=== PATIENT | female | born 1930 | race Caucasian/White ===

== ENCOUNTER 2018-03-29 13:45 | Emergency (ER) | payer MEDICARE, OTHER ==
[2018-03-29] MEDS ORDERED: Sodium Chloride 0.9% 1000 ML 1,000 ML IV SCH (14:00)
--- NOTE | 2018-03-29 14:02 | ERPHSYRPT ---
- History of Present Illness Time Seen by Provider: 03/29/18 13:56 Source: patient Exam Limitations: no limitations Patient Subjective Stated Complaint: pt reports she woke up this morning feeling weak-denies pain but states that when she stands up she feels like her legs are going to give out from the waist-denies fall-denies injury Triage Nursing Assessment: pt arrived to ed [facility] warm and dry- able to answer all questions [id number] easy and nonlabored-able to move extremities with noticed favoring of right arm-pt reports that shoulder is currently broke Physician History: 88-year-old white female arrives with complaint of weakness since this morning. Patient states that she was getting ready to go to the doctor's office when she stood up and felt weak in the legs she felt like she was going to pass out. She states she did not have any problems moving her feet or hands she does not have any speech problems. Past medical history includes myocardial infarction, hypercholesterolemia, high pressure, diabetes type 2, hypothyroidism, osteoarthritis Past surgical history includes CABG, cardiac catheter, hysterectomy, parathyroid surgery secondary to cancer, right carotid endarterectomy Social history negative Timing/Duration: today Severity: moderate Modifying Factors: Improves With: other (patient felt weak in her legs) Associated Symptoms: No nausea, No vomiting, No abdominal pain, No shortness of breath, No heartburn, No diaphoresis, No chills, No chest pain, No fever, No headaches, No loss of appetite, No malaise, No rash, No syncope, No seizure, No weakness Allergies/Adverse Reactions: Sulfa (Sulfonamide Antibiotics) Allergy (Mild, Verified 03/29/18 13:55) Hives Home Medications: Allopurinol 100 mg [Zyloprim 100 mg] 300 mg PO BID 11/08/15 [History] Amlodipine Besylate 5 mg [Norvasc 5 mg] 2.5 mg PO DAILY 11/08/15 [History] Aspirin [Pb Chewable Aspirin] 1 tab PO DAILY 11/08/15 [History] Furosemide 40 mg [Lasix 40 MG] 40 mg PO BID 11/08/15 [History] Glipizide 5 mg [Glucotrol 5 MG] 5 mg PO BID 11/08/15 [History] Levothyroxine Sodium 75 Mcg [Synthroid 75 Mcg] 75 mg PO DAILY 11/08/15 [ History] Metformin HCl 500 mg [Glucophage 500 MG] 500 mg PO DAILY 11/08/15 [History ] Nebivolol HCl [Bystolic] 10 mg PO BID 11/08/15 [History] Potassium Chloride 10 Meq Tab* [Klor Con 10 MEQ] 10 meq PO BID 11/08/15 [ History] Simvastatin 20 mg PO HS 11/08/15 [History] Benazepril HCl 10 mg [Lotensin 10 MG] 10 mg PO DAILY 03/31/16 [History] Tramadol HCl 50 mg [Ultram 50 mg] 50 mg PO UD 03/31/16 [History] Hx Tetanus, Diphtheria Vaccination/Date Given: Yes Hx Influenza Vaccination/Date Given: Yes Hx Pneumococcal Vaccination/Date Given: Yes Immunizations Up to Date: Yes - Review of Systems Constitutional: Weakness, No Fever, No Chills Eyes: No Symptoms Ears, Nose, & Throat: No Symptoms Respiratory: No Cough, No Dyspnea Cardiac: No Chest Pain, No Edema, No Syncope Abdominal/Gastrointestinal: No Abdominal Pain, No Nausea, No Vomiting, No Diarrhea Genitourinary Symptoms: No Dysuria Musculoskeletal: No Back Pain, No Neck Pain Skin: No Rash Neurological: No Dizziness, No Focal Weakness, No Sensory Changes Psychological: No Symptoms Endocrine: No Symptoms All Other Systems: Reviewed and Negative - Past Medical History Pertinent Past Medical History: Yes Neurological History: No Pertinent History ENT History: No Pertinent History Cardiac History: Other Respiratory History: No Pertinent History Endocrine Medical History: Hyperthyroidism Musculoskeletal History: Arthritis GI Medical History: No Pertinent History History: No Pertinent History Psycho-Social History: No Pertinent History Female Reproductive Disorders: No Pertinent History Other Medical History: [address] BYPASS IN 2001 - Past Surgical History Past Surgical History: Yes Neuro Surgical History: No Pertinent History Cardiac: CABG, Cardiac Catheterization Respiratory: No Pertinent History Gastrointestinal: No Pertinent History Female Surgical History: Hysterectomy Other Surgical History: PARATHYROID SURGERY FROM CANCER - Social History Smoking Status: Never smoker Exposure to second hand smoke: No Drug Use: none Patient Lives Alone: No - Female History Hx Now: No - Nursing Vital Signs Nursing Vital Signs: Initial Vital Signs Temperature 98.7 F 03/29/18 13:49 Pulse Rate 39 L 03/29/18 13:49 Respiratory Rate 18 03/29/18 13:49 Blood Pressure 153/43 03/29/18 13:49 O2 Sat by Pulse Oximetry 99 03/29/18 13:49 Pain Scale Pain Intensity 0 - Physical Exam General Appearance: no apparent distress, alert Eye Exam: PERRL/EOMI (which leads to the templ), eyes nml inspection Ears, Nose, Throat Exam: normal ENT inspection, TMs normal, pharynx normal, moist mucous membranes Neck Exam: normal inspection, non-tender, supple, full range of motion Respiratory Exam: normal breath sounds, lungs clear, No respiratory distress Cardiovascular Exam: bradycardia, No murmur Gastrointestinal/Abdomen Exam: soft, normal bowel sounds, No tenderness, No mass Back Exam: normal inspection, normal range of motion, No CVA tenderness, No vertebral tenderness Extremity Exam: normal inspection, normal range of motion, pelvis stable Neurologic Exam: alert, oriented x 3, cooperative, a&p mechanic II-XII nml as tested, normal mood/affect, nml cerebellar function, nml station & gait, sensation nml, No motor deficits Skin Exam: normal color, warm, dry, No rash Lymphatic Exam: No adenopathy SpO2 Interpretation: normal (99%) SpO2: 99 Oxygen Delivery: Room Air - Course EKG Interpreted by Me: RATE (50 bpm), A-fib, Other (EKG: atrial fibrillation, bradycardia, 50 bpm, frequent pauses, no acute ST or T wave changes noted) - Radiology Exams Chest X-ray Interpretation: Discussed w/ radiologist (minimal lingular atelectasis/ scarring, large chunky right calcified paratracheal lymph node, heart normal limits) Ordered Tests: Active Orders 24 hr Category Date Time Status EKG-ER Only STAT Care 03/29/18 13:56 Active IV Insertion STAT Care 03/29/18 13:56 Active Orthostatic Vital Signs STAT Care 03/29/18 13:58 Active CHEST 1 VIEW (PORTABLE) Stat Exams 03/29/18 13:57 Completed CBC W DIFF Stat Lab 03/29/18 14:25 Completed CMP Stat Lab 03/29/18 14:25 Completed MAGNESIUM Stat Lab 03/29/18 14:25 Completed Potassium Stat Lab 03/29/18 15:40 Completed TROPONIN Q3H Lab 03/29/18 14:25 Completed TROPONIN Q3H Lab 03/29/18 17:00 Ordered TROPONIN Q3H Lab 03/29/18 20:00 Ordered TROPONIN Q3H Lab 03/29/18 23:00 Ordered TROPONIN Q3H Lab 03/30/18 02:00 Ordered TSH, 3RD Generation Routine Lab 03/29/18 14:25 Completed UA W/RFX UR CULTURE Stat Lab 03/29/18 13:56 Uncollected Medication Summary Generic Name Dose Route Start Last Admin Trade Name Freq PRN Reason Stop Dose Admin Sodium Chloride 1,000 mls @ 50 mls/hr 03/29/18 14:00 03/29/18 14:46 Sodium Chloride 0.9% 1000 Ml IV 04/28/18 13:59 50 mls/hr .Q20H PAO Administration Discontinued Medications Generic Name Dose Route Start Last Admin Trade Name Freq PRN Reason Stop Dose Admin Calcium Gluconate Confirm 03/29/18 16:06 Calcium Gluconate 10% 1000 Mg Administered 03/29/18 16:07 Dose 1,000 mg IV .[facility] ONE Lab/Rad Data: Laboratory Result Diagrams 03/29/18 14:25 03/29/18 15:40 Laboratory Results 03/29/18 03/29/18 03/29/18 Range/Units 15:40 14:25 14:25 WBC (4.0-10.5) K/mm3 RBC (4.1-5.4) M/mm3 Hgb (12.0-16.0) gm/dl Hct (35-47) % MCV (78-100) fl MCH (26-32) pg MCHC (32-36) g/dl RDW (11.5-14.0) % Plt Count (150-450) K/mm3 MPV (6-9.5) fl Gran % (36.0-66.0) % Eos # (Auto) (0-0.5) Absolute Lymphs (auto) (1.0-4.6) Absolute Monos (auto) (0.0-1.3) Lymphocytes % (24.0-44.0) % Monocytes % (0.0-12.0) % Eosinophils % (0.00-5.0) % Basophils % (0.0-0.4) % Absolute Granulocytes (1.4-6.9) Basophils # (0-0.4) Sodium 129 L (137-145) mmol/L Potassium 8.4 H* 8.3 H* (3.5-5.1) mmol/L Chloride 98 (98-107) mmol/L Carbon Dioxide 22 (22-30) mmol/L Anion Gap 17.4 H (5-15) MEQ/L BUN 92 H (7-17) mg/dL Creatinine 2.60 H (0.52-1.04) mg/dL Estimated GFR 18.4 ML/MIN Glucose 253 H (74-106) mg/dL Calcium 9.9 (8.4-10.2) mg/dL Magnesium 1.6 (1.6-2.3) mg/dL Total Bilirubin 0.30 (0.2-1.3) mg/dL AST 18 (14-36) U/L ALT 16 (0-35) U/L Alkaline Phosphatase 48 (38-126) U/L Troponin I < 0.012 (0.000-0.034) ng/mL Serum Total Protein 6.8 (6.3-8.2) g/dL Albumin 4.3 (3.5-5.0) g/dL TSH 3rd Generation 0.313 L (0.47-4.68) mIU/L 03/29/18 Range/Units 14:25 WBC 10.4 (4.0-10.5) K/mm3 RBC 3.82 L (4.1-5.4) M/mm3 Hgb 11.5 L (12.0-16.0) gm/dl Hct 34.9 L (35-47) % MCV 91.4 (78-100) fl MCH 30.1 (26-32) pg MCHC 33.0 (32-36) g/dl RDW 14.9 H (11.5-14.0) % Plt Count 193 (150-450) K/mm3 MPV 11.9 H (6-9.5) fl Gran % 86.2 H (36.0-66.0) % Eos # (Auto) 0.01 (0-0.5) Absolute Lymphs (auto) 1.12 (1.0-4.6) Absolute Monos (auto) 0.28 (0.0-1.3) Lymphocytes % 10.8 L (24.0-44.0) % Monocytes % 2.7 (0.0-12.0) % Eosinophils % 0.1 (0.00-5.0) % Basophils % 0.2 (0.0-0.4) % Absolute Granulocytes 8.95 H (1.4-6.9) Basophils # 0.02 (0-0.4) Sodium (137-145) mmol/L Potassium (3.5-5.1) mmol/L Chloride (98-107) mmol/L Carbon Dioxide (22-30) mmol/L Anion Gap (5-15) MEQ/L BUN (7-17) mg/dL Creatinine (0.52-1.04) mg/dL Estimated GFR ML/MIN Glucose (74-106) mg/dL Calcium (8.4-10.2) mg/dL Magnesium (1.6-2.3) mg/dL Total Bilirubin (0.2-1.3) mg/dL AST (14-36) U/L ALT (0-35) U/L Alkaline Phosphatase (38-126) U/L Troponin I (0.000-0.034) ng/mL Serum Total Protein (6.3-8.2) g/dL Albumin (3.5-5.0) g/dL TSH 3rd Generation (0.47-4.68) mIU/L - Progress Progress: improved Progress Note: 03/29/18 14:41 This is an 88-year-old white female with history of myocardial infarction atherosclerotic coronary artery disease hypercholesterolemia high blood pressure diabetes hypothyroidism osteoarthritis She states that she was getting ready to see her drill press operator for metal today when she began to feel weak in the legs when she stood up. She did not have any problems moving did not have any speech abnormalities or sensory abnormalities. She does state that she feels weak with standing. Patient arrives with a heart rate of approximately 40 blood pressure is stable EKG shows what appears to be a fairly narrow complex which shows a rate at approximately 50 bpm however there are positive lasting as long as 2-3 seconds Patient has a monitor that shows heart rate going from the 50s down into the 30s Patient does not appear to be in acute distress. I have contacted Dr. Peres, and I requested that the nurses fax the patient's EKG down to him CBC CMP troponin has been ordered. He has requested magnesium level and TSH level. . 03/29/18 16:18 Patient was noted have potassium level of 8.3 sodium 129 chloride 98 bicarbonate 22 BUN 92 creatinine 2.6 glucose 253 CBC was stable troponin within normal limits Case is discussed with Dr. [place] data communications technician for Dr. Suero he would prefer to have the patient sent to [facility] due to the renal problems with the patient combined with hyperkalemia as well as the patient's bradycardia. I've contacted Dr. Peres he asked that I give the patient one amp of bicarbonate and 1 amp of calcium gluconate IV slowly. IV normal saline was given wide open [address] Angel through [facility] call He requested that we give the patient D 25 one amp go ahead and give the patient Humulin R 10 units IV. He has excepted the patient for transfer. Diagnosis bradycardia. Weakness. Hyperkalemia. Renal failure. - Departure Time of Disposition: 16:21 Departure Disposition: Transfer ([facility]) Clinical Impression: Hyperkalemia, Bradycardia, Weakness Renal failure Qualifiers: Renal failure chronicity: unspecified chronicity Qualified Code(s): N19 - Unspecified kidney failure Condition: Fair Critical Care Time: No Referrals: DONALD SUERO [Primary Care Provider] -
--- NOTE | 2018-03-29 14:30 | XRAY ---
Indication: Weakness. Comparison: March 31, 2016. Portable chest unchanged again demonstrating minimal lingular atelectasis/scarring and large chunky right paratracheal calcified node. Remaining lungs clear. Heart is within normal limits for AP portable technique and demonstrates previous CABG surgery. Bony thorax again demonstrates osteopenia, mild degenerative changes, and nonunited right humeral neck fracture. Impression: Stable nonacute chest with chronic features.
[2018-03-29] MEDS ORDERED: Sodium Chloride 0.9% 1000 ML 1,000 ML ONE (14:40)
[2018-03-29 14:46] LABS: BASOPHIL % 0.2 % (0.0-0.4); Basophil (Absolute #) 0.02 (0-0.4); Eosinophil % 0.1 % (0.00-5.0); Eosinophil (Absolute #) 0.01 (0-0.5); Granulocyte Absolute (ANC) 8.95 (1.4-6.9); Granulocytes % 86.2 % (36.0-66.0); Hematocrit 34.9 % (35-47); Hemoglobin 11.5 gm/dl (12.0-16.0); Lymphocyte (Absolute #) 1.12 (1.0-4.6); Lymphocytes % 10.8 % (24.0-44.0); Mean Cell Volume 91.4 fl (78-100); Mean Corpuscular Hemoglobin 30.1 pg (26-32); Mean Platelet Volume 11.9 fl (6-9.5); Monocyte (Absolute #) 0.28 (0.0-1.3); Monocytes % 2.7 % (0.0-12.0); Platelet Count 193 K/mm3 (150-450); Red Blood Count 3.82 M/mm3 (4.1-5.4); Red Cell Distribution Width 14.9 % (11.5-14.0); White Blood Count 10.4 K/mm3 (4.0-10.5)
[2018-03-29 15:04] LABS: ALBUMIN 4.3 g/dL (3.5-5.0); ANION GAP 17.4 MEQ/L (5-15); BILIRUBIN,TOTAL 0.3 mg/dL (0.2-1.3); Calcium 9.9 mg/dL (8.4-10.2); Creatinine 1 2.6 mg/dL (0.52-1.04); Total Protein 6.8 g/dL (6.3-8.2)
[2018-03-29 15:18] LABS: Potassium 8.3 mmol/L (3.5-5.1)
[2018-03-29 15:35] LABS: TSH, 3RD Generation 0.313 mIU/L (0.47-4.68)
[2018-03-29 15:42] LABS: TROPONIN < 0.012 ng/mL (0.000-0.034)
[2018-03-29 15:59] VITALS: BP 139/46
[2018-03-29 16:00] VITALS: PULSE 30
[2018-03-29] MEDS ORDERED: Calcium Gluconate 10% 1000 MG IV ONE (16:06)
[2018-03-29 16:22] VITALS: O2SAT 99
[2018-03-29] MEDS ORDERED: D50W 50 ml Abboject IV ONE (16:31)
[2018-03-29] MEDS ORDERED: NovoLIN R ONE (16:31)
[2018-03-29] MEDS ORDERED: Sodium Bicarbonate 50 MEQ/50 ML VIAL ONE (16:31)
== END 2018-03-29 17:11 | disposition short-term general hospital (02) ==
LOC: ED 13:45
DX: R00.1 Bradycardia, unspecified (principal); E87.5 Hyperkalemia; N19 Unspecified kidney failure; I48.91 Unspecified atrial fibrillation; R53.1 Weakness; E11.9 Type 2 diabetes mellitus without complications; Z79.899 Other long term (current) drug therapy; I25.2 Old myocardial infarction; Z95.1 Presence of aortocoronary bypass graft; Z79.84 Long term (current) use of oral hypoglycemic drugs; Z79.82 Long term (current) use of aspirin
CPT/HCPCS: 36000; 36415; 71045; 80053; 82962; 83735; 84132; 84443; 84484; 85025; 93005; 99285; J0610; A9270-GY

== ENCOUNTER 2018-05-16 10:26 | Emergency (ER) | payer MEDICARE, OTHER ==
--- NOTE | 2018-05-16 11:02 | ERPHSYRPT ---
- History of Present Illness Time Seen by Provider: 05/16/18 10:42 Source: patient, family Exam Limitations: no limitations Physician History: The patient is an 88-year-old female with her [id number] complaining that her blood pressure has been elevated for the past couple of weeks. Many years ago she was on antihypertensives but has been taken off of them for about the last few months. Her blood pressure at home over the last 2 weeks has been a systolic of about 180-200. She has no specific problems. She denies chest pain or dizziness. She called her printing machine operator today, who put her on carvedilol 3.125 mg daily one week ago. The printing machine operator wanted her to be seen in the ER because her blood pressure was 200/100. Her past medical history significant for CAD, CABG, hypertension, hypothyroidism, thyroid resection, CHF , DM, and gout. Timing/Duration: week(s) (2), constant, gradual onset Severity: moderate Modifying Factors: Improves With: medication Associated Symptoms: denies symptoms Allergies/Adverse Reactions: adhesive tape Allergy (Intermediate, Verified 05/16/18 11:04) Blisters Sulfa (Sulfonamide Antibiotics) Allergy (Mild, Verified 05/16/18 10:51) Hives Home Medications: Allopurinol 100 mg [Zyloprim 100 mg] 300 mg PO BID 11/08/15 [History] Aspirin [Pb Chewable Aspirin] 1 tab PO DAILY 11/08/15 [History] Furosemide 40 mg [Lasix 40 MG] 40 mg PO BID 11/08/15 [History] Glipizide 5 mg [Glucotrol 5 MG] 5 mg PO BID 11/08/15 [History] Levothyroxine Sodium 75 Mcg [Synthroid 75 Mcg] 75 mg PO DAILY 11/08/15 [ History] Metformin HCl 500 mg [Glucophage 500 MG] 500 mg PO DAILY 11/08/15 [History ] Hx Tetanus, Diphtheria Vaccination/Date Given: Yes Hx Influenza Vaccination/Date Given: Yes Hx Pneumococcal Vaccination/Date Given: Yes - Review of Systems Constitutional: No Fever, No Chills Eyes: No Symptoms Ears, Nose, & Throat: No Symptoms Respiratory: No Cough, No Dyspnea Cardiac: No Chest Pain, No Edema, No Syncope Abdominal/Gastrointestinal: No Abdominal Pain, No Nausea, No Vomiting, No Diarrhea Genitourinary Symptoms: No Dysuria Musculoskeletal: No Back Pain, No Neck Pain Skin: No Rash Neurological: No Dizziness, No Focal Weakness, No Sensory Changes Psychological: No Symptoms Endocrine: No Symptoms Hematologic/Lymphatic: No Symptoms Immunological/Allergic: No Symptoms All Other Systems: Reviewed and Negative - Past Medical History Pertinent Past Medical History: Yes Neurological History: No Pertinent History ENT History: No Pertinent History Cardiac History: Other Respiratory History: No Pertinent History Endocrine Medical History: Hyperthyroidism Musculoskeletal History: Arthritis GI Medical History: No Pertinent History History: No Pertinent History Psycho-Social History: No Pertinent History Female Reproductive Disorders: No Pertinent History Other Medical History: [address]PASS IN 2001 - Past Surgical History Past Surgical History: Yes Neuro Surgical History: No Pertinent History Cardiac: CABG, Cardiac Catheterization Respiratory: No Pertinent History Gastrointestinal: No Pertinent History Female Surgical History: Hysterectomy Other Surgical History: PARATHYROID SURGERY FROM CANCER - Social History Smoking Status: Never smoker Exposure to second hand smoke: No Drug Use: none Patient Lives Alone: No - Nursing Vital Signs Nursing Vital Signs: Initial Vital Signs Temperature 98.7 F 05/16/18 10:39 Pulse Rate 78 05/16/18 10:39 Respiratory Rate 18 05/16/18 10:39 Blood Pressure 224/96 05/16/18 10:39 O2 Sat by Pulse Oximetry 99 05/16/18 10:39 Pain Scale Pain Intensity 0 - Physical Exam General Appearance: no apparent distress, alert Eye Exam: PERRL/EOMI, eyes nml inspection Ears, Nose, Throat Exam: normal ENT inspection, TMs normal, pharynx normal, moist mucous membranes Neck Exam: normal inspection (her), non-tender, supple, full range of motion Respiratory Exam: normal breath sounds, lungs clear, No respiratory distress Cardiovascular Exam: regular rate/rhythm, normal heart sounds, normal peripheral pulses Gastrointestinal/Abdomen Exam: soft, normal bowel sounds, No tenderness, No mass Pelvic Exam: not done Rectal Exam: not done Back Exam: normal inspection, normal range of motion, No CVA tenderness, No vertebral tenderness Extremity Exam: normal inspection, normal range of motion, pelvis stable Neurologic Exam: alert, oriented x 3, cooperative, normal mood/affect, nml cerebellar function, nml station & gait, sensation nml, No motor deficits Skin Exam: normal color, warm, dry, No rash Lymphatic Exam: No adenopathy SpO2 Interpretation: normal Oxygen Delivery: Room Air - Course EKG Interpreted by Me: RATE, Sinus Rhythm, Left Elmore Deviation, 1st degree AV Block, NORMAL QRS, NORMAL ST-T - Radiology Exams Chest X-ray Interpretation: Reviewed by me, Teleradiologist Report (per Dr Casey), Negative (non acute chest) Ordered Tests: Active Orders 24 hr Category Date Time Status Marketing Director STAT Care 05/16/18 11:08 Active Clean Catch Urine Specimen STAT Care 05/16/18 11:07 Active EKG-ER Only STAT Care 05/16/18 11:07 Active IV Insertion STAT Care 05/16/18 11:07 Active CHEST 2 VIEWS (PA AND LAT) Stat Exams 05/16/18 11:08 Completed CBC W DIFF Stat Lab 05/16/18 11:30 Completed CMP Stat Lab 05/16/18 11:30 Completed Manual Differential NC Stat Lab 05/16/18 11:30 Completed TROPONIN Q3H Lab 05/16/18 11:30 Completed TSH, 3RD Generation Stat Lab 05/16/18 11:30 Completed UA W/ MICROSCOPIC Stat Lab 05/16/18 13:25 Completed Medication Summary Discontinued Medications Generic Name Dose Route Start Last Admin Trade Name Freq PRN Reason Stop Dose Admin Hydralazine HCl 20 mg 05/16/18 11:10 05/16/18 11:50 Apresoline 20 Mg/Ml Inj IV 05/16/18 11:11 Not Given STAT ONE Labetalol HCl 20 mg 05/16/18 11:50 05/16/18 11:51 Trandate 20 Mg/5 Ml Syringe IV 05/16/18 11:51 20 mg STAT ONE Administration Labetalol HCl Confirm 05/16/18 11:49 Trandate 100 Mg/20 Ml Mdv For Drip Administered 05/16/18 11:50 Dose 100 mg IV .[facility] [employer] Lab/Rad Data: Laboratory Result Diagrams 05/16/18 11:30 05/16/18 11:30 Laboratory Results 05/16/18 05/16/18 05/16/18 Range/Units 13:25 11:30 11:30 WBC (4.0-10.5) K/mm3 RBC (4.1-5.4) M/mm3 Hgb (12.0-16.0) gm/dl Hct (35-47) % MCV (78-100) fl MCH (26-32) pg MCHC (32-36) g/dl RDW (11.5-14.0) % Plt Count (150-450) K/mm3 MPV (6-9.5) fl Segmented Neutrophils (36.0-66.0) % Lymphocytes (Manual) (24-44) % Atypical Lymphocytes % Toxic Granulation Platelet Estimate (NORMAL) RBC Morphology Sodium 143 (137-145) mmol/L Potassium 3.8 (3.5-5.1) mmol/L Chloride 104 (98-107) mmol/L Carbon Dioxide 30 (22-30) mmol/L Anion Gap 13.2 (5-15) MEQ/L BUN 21 H (7-17) mg/dL Creatinine 1.01 (0.52-1.04) mg/dL Estimated GFR 54.9 ML/MIN Glucose 154 H (74-106) mg/dL Calcium 9.4 (8.4-10.2) mg/dL Total Bilirubin 0.30 (0.2-1.3) mg/dL AST 17 (14-36) U/L ALT 16 (0-35) U/L Alkaline Phosphatase 66 (38-126) U/L Troponin I < 0.012 (0.000-0.034) ng/mL Serum Total Protein 6.7 (6.3-8.2) g/dL Albumin 4.0 (3.5-5.0) g/dL TSH 3rd Generation 3.710 (0.47-4.68) mIU/L Ur Collection Type VOID Urine Color YELLOW (YELLOW) Urine Appearance CLEAR (CLEAR) Urine pH 7.0 (5-6) Ur Specific Mce[place] 1.005 (1.005-1.025) Urine Protein NEGATIVE (Negative) Urine Ketones NEGATIVE (NEGATIVE) Urine Blood NEGATIVE (0-5) Jerrell/ul Urine Nitrite NEGATIVE (NEGATIVE) Urine Bilirubin NEGATIVE (NEGATIVE) Urine Urobilinogen NORMAL (0-1) mg/dL Ur Leukocyte Esterase TRACE (NEGATIVE) Urine Microscopic WBC 0-2 (0-5) /HPF Ur Epithelial Cells RARE (FEW) /HPF Urine Culture Reflexed NO (NO) Urine Glucose NEGATIVE (NEGATIVE) mg/dL Specimen Received 05/16/2018 1430 05/16/18 Range/Units 11:30 WBC 10.1 (4.0-10.5) K/mm3 RBC 3.96 L (4.1-5.4) M/mm3 Hgb 11.8 L (12.0-16.0) gm/dl Hct 36.9 (35-47) % MCV 93.2 (78-100) fl MCH 29.7 (26-32) pg MCHC 32.0 (32-36) g/dl RDW 14.9 H (11.5-14.0) % Plt Count 290 (150-450) K/mm3 MPV 10.9 H (6-9.5) fl Segmented Neutrophils 73 H (36.0-66.0) % Lymphocytes (Manual) 26 (24-44) % Atypical Lymphocytes 1 % Toxic Granulation 1+ Platelet Estimate NORMAL (NORMAL) RBC Morphology NORMAL Sodium (137-145) mmol/L Potassium (3.5-5.1) mmol/L Chloride (98-107) mmol/L Carbon Dioxide (22-30) mmol/L Anion Gap (5-15) MEQ/L BUN (7-17) mg/dL Creatinine (0.52-1.04) mg/dL Estimated GFR ML/MIN Glucose (74-106) mg/dL Calcium (8.4-10.2) mg/dL Total Bilirubin (0.2-1.3) mg/dL AST (14-36) U/L ALT (0-35) U/L Alkaline Phosphatase (38-126) U/L Troponin I (0.000-0.034) ng/mL Serum Total Protein (6.3-8.2) g/dL Albumin (3.5-5.0) g/dL TSH 3rd Generation (0.47-4.68) mIU/L Ur Collection Type Urine Color (YELLOW) Urine Appearance (CLEAR) Urine pH (5-6) Ur Specific M[place] (1.005-1.025) Urine Protein (Negative) Urine Ketones (NEGATIVE) Urine Blood (0-5) Jerrell/ul Urine Nitrite (NEGATIVE) Urine Bilirubin (NEGATIVE) Urine Urobilinogen (0-1) mg/dL Ur Leukocyte Esterase (NEGATIVE) Urine Microscopic WBC (0-5) /HPF Ur Epithelial Cells (FEW) /HPF Urine Culture Reflexed (NO) Urine Glucose (NEGATIVE) mg/dL Specimen Received - Progress Progress: unchanged Counseled pt/family regarding: lab results, diagnosis, need for follow-up, rad results - Departure Time of Disposition: 14:51 Departure Disposition: Home Clinical Impression: HTN (hypertension) Condition: Stable Critical Care Time: No Referrals: DONALD SUERO [Primary Care Provider] - Prescriptions: Amlodipine Besylate 5 mg [Norvasc 5 mg] 5 mg PO DAILY #14 tablet
[2018-05-16] MEDS ORDERED: APRESOLINE 20 MG/ML INJ IV ONE (11:10)
[2018-05-16 11:39] LABS: Hematocrit 36.9 % (35-47); Hemoglobin 11.8 gm/dl (12.0-16.0); Mean Cell Volume 93.2 fl (78-100); Mean Platelet Volume 10.9 fl (6-9.5); Platelet Count 290 K/mm3 (150-450); Red Blood Count 3.96 M/mm3 (4.1-5.4); Red Cell Distribution Width 14.9 % (11.5-14.0); White Blood Count 10.1 K/mm3 (4.0-10.5)
--- NOTE | 2018-05-16 11:41 | XRAY ---
Indication: High blood pressure. Comparison: March 29, 2018. PA/lateral chest again demonstrates tiny calcified granulomas, chunky right paratracheal calcified node, aortic calcifications, and CABG surgery. Remaining heart and lungs unremarkable. Bony thorax intact again with osteopenia and degenerative changes. Previous nonunited right humeral neck fracture now markedly angulated. Impression: 1. Again nonunited right humeral neck fracture now markedly angulated. 2. Otherwise nonacute chest with chronic features.
[2018-05-16 11:45] LABS: Mean Corpuscular Hemoglobin 29.7 pg (26-32)
[2018-05-16] MEDS ORDERED: TRANDATE 100 MG/20 ML MDV FOR DRIP IV ONE (11:49)
[2018-05-16] MEDS ORDERED: TRANDATE 20 MG/5 ML SYRINGE IV ONE (11:50)
[2018-05-16 12:26] LABS: ATYPICAL LYMPHS 1 %; Lymphocytes 26 % (24-44); Neutrophils 73 % (36.0-66.0); Total Cells Counted 100; Toxic Granulation 1+
[2018-05-16 12:27] LABS: Platelet Estimate NORMAL (NORMAL)
[2018-05-16 12:28] LABS: ANION GAP 13.2 MEQ/L (5-15); BILIRUBIN,TOTAL 0.3 mg/dL (0.2-1.3); Calcium 9.4 mg/dL (8.4-10.2); Creatinine 1 1.01 mg/dL (0.52-1.04); Potassium 3.8 mmol/L (3.5-5.1); TSH, 3RD Generation 3.71 mIU/L (0.47-4.68); Total Protein 6.7 g/dL (6.3-8.2)
[2018-05-16 13:44] VITALS: PULSE 65
[2018-05-16 14:43] LABS: Appearance CLEAR (CLEAR); Bilirubin NEGATIVE (NEGATIVE); Blood NEGATIVE Ery/ul (0-5); Glucose NEGATIVE (NEGATIVE); Ketones NEGATIVE (NEGATIVE); Leukocyte Esterase TRACE (NEGATIVE); Nitrite NEGATIVE (NEGATIVE); Protein,Urine Dip NEGATIVE (Negative); Specific Gravity 1.005 (1.005-1.025); Urobilinogen NORMAL mg/dL (0-1)
[2018-05-16 14:44] LABS: Epithelial Cells RARE /HPF (FEW); WBC 0-2 /HPF (0-5)
[2018-05-16 15:55] VITALS: BP 190/83; O2SAT 100
== END 2018-05-16 16:07 | disposition home or self-care (01) ==
LOC: ED 10:26
DX: I10 Essential (primary) hypertension (principal); Z79.899 Other long term (current) drug therapy; E11.9 Type 2 diabetes mellitus without complications; Z79.84 Long term (current) use of oral hypoglycemic drugs
CPT/HCPCS: 36000; 36415; 71046; 80053; 81000; 84443; 84484; 85025; 93005; 93041; 96374; 99284